=== PATIENT | male | born 1970 | race Caucasian/White ===

== ENCOUNTER → 2024-02-11 06:34 | Day surgery (SDC) | payer OTHER, SELFPAY | LOC: GI 06:34 | PROVIDERS: ATTENDING PHYSICIAN Internal Medicine Gastroenterology | DX: Z12.11 Encounter for screening for malignant neoplasm of colon (principal); K57.30 Diverticulosis of large intestine without perforation or abscess without bleeding; K63.5 Polyp of colon; K64.8 Other hemorrhoids; D12.2 Benign neoplasm of ascending colon; D12.3 Benign neoplasm of transverse colon; D12.5 Benign neoplasm of sigmoid colon; Z86.0100 Personal history of colon polyps, unspecified | CPT/HCPCS: 45380; 88305 ==

== ENCOUNTER 2024-09-19 21:37 | Emergency (ER) | payer OTHER, SELFPAY ==
[2024-09-19 21:42] VITALS: BP 142/63
--- NOTE | 2024-09-20 00:14 | ED.GENMED ---
History of Present Illness
General
Chief Complaint: Head Injury
Source: patient
Time Seen by Provider: 09/19/24 23:46
History of Present Illness
History of Present Illness:
54-year-old male with past medical history of previous TIA secondary to a bicuspid aortic valve status post aortic valve placement and pacemaker placement, on Coumadin, presenting to the ER for evaluation after he accidentally fell from a chair that
broke causing him to strike the back of his head, no LOC, minimal headache, no vomiting but due to his anticoagulated status came to the ER to be further evaluated. Patient also notes some mild right shoulder pain but states has full range of
motion and this is minimally bothering him. No other injuries or concerns.
Past History
Past History
ED Past Medical History: CVA, HTN, Valvular disease (Bicuspid aortic valve, ), Hypothyroidism and Other (Obesity)
ED Past Surgical History: Cardiac (Aortic valve replacement-pig which failed the mechanical per pt)
Social History
Tobacco: Former smoker
Alcohol: Occasional
Drug: None
Personal:
Living: with family
Employment: Employed
Family History
Family History: Other (Noncontributory)
Review of Systems
Review of Systems
All Other Systems: ROS reviewed and negative except as documented in HPI and ROS
Phy Exam
Physical Exam
Physical Exam:
GENERAL: Alert , in no apparent distress
EYE: conjunctiva clear
Head: Normocephalic atraumatic
NECK: Supple, no midline tenderness
ENT: mmm.
LUNGS: no acute respiratory distress
NEUROLOGICAL: Alert and oriented
SKIN: Warm and dry, skin intact.
MUSCULOSKELETAL: well perfused. Full range of motion all extremities
PSYCH: Normal and appropriate interaction.
Scores
Heart Failure Risk
Heart Failure Risk Score: Not Applicable
Heart Score for Chest Pain Patients
STEMI patient?: Not applicable
Withdrawal Assessment of Alcohol
Withdrawal Assessment Completed?: Not applicable
Course
Orders/Labs/Results
Orders:
Orders
09/19/24 21:46
CT Head W/o Iv Contrast Urgent
Comment:
Reason For Exam: fall on warfarin
09/19/24 21:56
Cervical Spine wo Contrast CT [CT Cervical Spine W/o Iv Contr] Urgent
Comment:
Reason For Exam: fall with head strike
09/19/24 23:47
Complete Blood Count/With Diff Urgent
Prothrombin Time Urgent
Abnormal Lab Results
09/20/24
00:15
RBC 4.29 L 10^6/uL
(4.70-6.10)
Hct 38.0 L %
(39.0-52.0)
MPV 10.7 H fL
(7.4-10.4)
PT 25.7 H Sec
(11.4-14.6)
09/20/24 00:15
Vital Signs
Initial and Last Documented VS:
Initial Vital Signs
Temp Pulse Resp BP Pulse Ox
97.7 F 58 18 142/63 98
09/19/24 21:42 09/19/24 21:42 09/19/24 21:42 09/19/24 21:42 09/19/24 21:42
Last Documented Vital Signs
Temp Pulse Resp BP Pulse Ox
97.7 F 58 18 142/63 98
09/19/24 21:42 09/19/24 21:42 09/19/24 21:42 09/19/24 21:42 09/19/24 21:42
MDM/Problems Addressed
Differential Diagnosis Includes:
Concussion, contusion, intracranial bleeding
MDM/Problems Addressed:
54-year-old male presenting to the ER for evaluation after a chair broke causing him to fall striking the back of his head onto the ground also injuring his right shoulder. Patient states he is not concerned about the right shoulder and only about
head injury. CT of the head and cervical spine were ordered and ultimately negative for any acute pathology. Given patient is anticoagulated on Coumadin will check an INR to ensure patient does not have a supratherapeutic INR that would require
repeat CT imaging. Patient otherwise hemodynamically stable. Anticipate discharge home pending labs.
*Radiology
Radiology exam reviewed: radiology read reviewed
*Pulse Oximetry
Patient hypoxic: no
*Critical Care Note
Total Time (30-74mins, 75-104mins- exclusive of procedures): Not Applicable
Patient Management
Escalation/DeEscalation of care consider admission/obs:
INR 2.3. This is actually subtherapeutic for what patient's baseline should be but in this instance he is certainly stable for discharge home. Repeat INR within the next week. Aware of return precautions to the ER.
ED Attending Note
-
Portions of this chart may have been created with voice recognition software.� Occasional wrong word or��sound alike� substitutions may have occurred due to the inherent limitations of voice recognition software.
Discharge Plan
Departure
Patient Disposition: Home (Routine Discharge)
Date of Disposition: 09/20/24
Time of Disposition: 00:43
Patient with high blood pressure during this ER visit?: No
Discharge Problem:
Accidental fall from chair, Minor head injury
Instructions: Minor Head Injury (DC)
Prescriptions:
No Action
warfarin [Jantoven] 10 MG tablet
15 mg PO FR
warfarin [Jantoven] 10 MG tablet
10 mg PO SUMOTUWETHSA
aspirin 81 MG tablet,delayed release (DR/EC)
81 mg PO HS
levothyroxine 25 MCG tablet
25 mcg PO HS
losartan 25 MG tablet
25 mg PO HS
metoprolol tartrate 50 MG tablet
50 mg PO HS
escitalopram oxalate 20 MG tablet
20 mg PO HS
hydrocodone-acetaminophen 5-325 mg tablet
1 tab PO Q6H PRN (Reason: pain) Qty: 7 0RF
Referrals:
Alcides Skleton DO [Family Provider] -
Interventions
Interventions:
*Risk Screen - Suicide Last Done: 09/19/24 21:45
*General Assessment Last Done: 09/19/24 21:45
*ED COVID-19 Vaccine History Last Done: 09/19/24 21:45
Discharge Date and Time
Print Language: CYMRAES
[2024-09-20 00:37] LABS: % Basophils 0.9 % (0-2); % Immature Granulocytes 0.3 % (0-0.5); % Lymphocytes 21.9 % (20.5-51.1); % Monocytes 8.4 % (1.7-9.3); % Neutrophils 64.5 % (42.2-75.2); Absolute Basophils 0.1 10^3/uL (0-0.2); Absolute Eosinophils 0.3 10^3/uL (0-0.7); Absolute Lymphocytes 1.5 10^3/uL (1.2-3.4); Absolute Monocytes 0.6 10^3/uL (0.1-0.6); Absolute Neutrophils 4.5 10^3/uL (1.4-6.5); Hemoglobin 13.1 g/dL (13.0-18.0); Mean Corp Hgb Conc. 34.5 g/dL (33.0-37.0); Mean Corpuscular Hgb 30.5 pg (27.0-31.0); Mean Corpuscular Volume 88.6 fL (80.0-94.0); Mean Platelet Volume 10.7 fL (7.4-10.4); Nucleated Red Blood Cells % 0 % (-); Platelet Count 172 10^3/uL (130-400); Red Blood Cell Count 4.29 10^6/uL (4.70-6.10); Red Cell Dist. Width 12.9 % (11.5-14.5); White Blood Cell Count 6.9 10^3/uL (4.8-10.8)
[2024-09-20 00:38] LABS: PT 25.7 Sec (11.4-14.6)
[2024-09-20 01:09] VITALS: BMI 41.2
[2024-09-20 01:18] VITALS: BP 116/62
== END 2024-09-20 01:19 | disposition home or self-care (01) ==
LOC: EMR 21:37
PROVIDERS: Physician Assistant Medical; EMERGENCY PHYSICIAN Student in an Organized Health Care Education/Training Program; FAMILY PHYSICIAN Family Medicine
DX: S09.90XA Unspecified injury of head, initial encounter (principal); W07.XXXA Fall from chair, initial encounter; Z87.891 Personal history of nicotine dependence; Z86.73 Personal history of transient ischemic attack (TIA), and cerebral infarction without residual deficits; Z95.2 Presence of prosthetic heart valve; Z95.0 Presence of cardiac pacemaker; Z79.01 Long term (current) use of anticoagulants
CPT/HCPCS: 99285; 70450; 72125; 85025; 85610; 99284